=== PATIENT | female | born 1945 | race American Indian/Alaskan Native ===

== ENCOUNTER 2017-10-24 09:30 | Outpatient (CLI) | payer MEDICARE ==
--- NOTE | 2017-10-24 12:55 | Magnetic Resonance Report ---
MRI ABDOMEN WITHOUT CONTRAST AND WITH MRCP: 10/24/17 09:30:00 CLINICAL: Epigastric pain and dilated bile ducts. COMPARISON :None. TECHNIQUE: Axial T1 in phase and opposed phase, coronal T1 and coronal and axial T2 fat sat sequences without contrastplus 3-D thick slab MRCP sequences on a 1.5 Laura magnet. FINDINGS: Normal liver size, contour and signal. No liver mass. Surgical clips in the gallbladder fossa and no gallbladder identified. Mild dilatation of intrahepatic bile ducts and pronounced dilatation of the common bile duct. The right intrahepatic bile duct is strictured at its junction with the CBD. The distal portion of the left intrahepatic bile duct is not well delineated and from the portal vasculature. The CBD has a cork screw appearance and measures approximately 12 mm maximum diameter. There is a stricture of the distal CBD with the CBD distal to the stricture measuring approximately 3 mm. A cystic structure adjacent to the distal CBD measures 8 mm and may be a cystic duct remnant or a tiny choledochal cyst. The pancreatic duct is small and normal caliber. No evidence of choledocholithiasis or retained cystic duct stone. No evidence of mass. The pancreas is small with normal signal. The spleen is normal. Normal adrenal glands and kidneys. The renal collecting systems and ureters are nondilated. Aortic ectasia and tortuosity. IMPRESSION: 1. 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 2. No evidence of choledocholithiasis. 3. Status post cholecystectomy with no evidence of retained cystic duct stone. 4. An 8 mm cystic duct remnant versus choledochal cyst adjacent to the distal CBD. 5. No evidence of liver disease or portal hypertension. 6. No signs of pancreatitis.
== END 2017-10-24 09:31 | disposition home or self-care (01) ==
LOC: SPVIMAG 09:30
PROVIDERS: ATTEND Internal Medicine Gastroenterology
DX: K83.8 Other specified diseases of biliary tract (principal); I77.819 Aortic ectasia, unspecified site; Z90.49 Acquired absence of other specified parts of digestive tract
CPT/HCPCS: 74181